=== PATIENT | female | born 2000 | race Caucasian/White ===

== ENCOUNTER 2021-12-01 14:15 | Emergency (ER) | payer BC ==
[2021-12-01] MEDS ORDERED: PROMETHAZINE 25 MG/1 ML VIAL IM STA (16:07)
--- NOTE | 2021-12-01 16:11 | ED Physician Documentation ---
History of Present Illness - Stated complaint Stated Complaint: MED WITHDRAWL/FEVER - Chief complaint Chief Complaint: General - History obtained from History obtained from: Patient - History of Present Illness Timing: How many days ago (3) Pain level max: 0 Pain level now: 0 - Additonal information Additional information: Patient is a 21-year-old female with a history of depression and possible bipolar disorder. She states that she did not like the way her psychiatric medications were making her feel and so she stopped all of her psychiatric medications 3 to 4 days ago. She states since that time she has had increasing nausea. She has Zofran at home but did not take it. She does not want to be restarted on her medications. No seizures. No chest pain. No shortness of breath. Denies any possibility of . Nothing makes it better or worse. She is here requesting something for nausea. She has currently decided to treat her depression with antioxidants and diet Review of Systems Constitutional: denies: Fever, Chills Cardiac: denies: Chest pain / pressure Respiratory: denies: Cough GI: denies: Abdominal Pain, Vomiting, Diarrhea : denies: Dysuria, Frequency, Hesitancy, Now EGA Skin: denies: Rash Musculoskeletal: denies: Neck pain, Back pain Neurologic: denies: Headache PD PAST MEDICAL HISTORY - Past Medical History Past Medical History: Yes Psych: Depression - Past Surgical History Past Surgical History: No - Present Medications Home Medications: Ambulatory Orders Medication Instructions Recorded Confirmed Ondansetron Odt [Zofran] 4 mg TL Q6H PRN #10 tablet 12/01/21 Promethazine [Phenergan] 25 mg PO Q6H PRN #10 tab 12/01/21 - Allergies Allergies/Adverse Reactions: Allergies Allergy/AdvReac Type Severity Reaction Status Date / Time No Known Drug Allergies Allergy Verified 12/01/21 14:34 - Living Situation Living Situation: reports: With family Living Arrangement: reports: At home - Social History Does the pt drink ETOH?: No Does the pt have substance abuse?: No - Family History Family history: reports: Non contributory PD ED PE NORMAL - Vitals Vital signs reviewed: Yes - General General: Alert and oriented X 3, No acute distress, Well developed/nourished - HEENT HEENT: Moist mucous membranes - Neck Neck: Supple, no meningeal sign - Cardiac Cardiac: RRR - Respiratory Respiratory: No respiratory distress, Clear bilaterally - Abdomen Abdomen: Soft, Non tender, Non distended - Derm Derm: Warm and dry - Extremities Extremities: No edema - Neuro Neuro: Alert and oriented X 3 - Psych Psych: Normal mood, Normal affect Results - Vitals Vitals: Vital Signs - 24 hr 12/01/21 12/01/21 14:26 16:36 Temperature 36.6 C 36.7 C Heart Rate 77 75 Respiratory 18 16 Rate Blood Pressure 136/94 H 130/89 H O2 Saturation 100 100 Oxygen O2 Source Room air PD MEDICAL DECISION MAKING - ED course Complexity details: considered differential, d/w patient ED course: 21-year-old female has been withdrawing from her antipsychotic medications and antidepressants. She does not want to be restarted on these. We will prescribe antiemetics for home. Patient is well-appearing, nontoxic. Afebrile. Declines any further work-up. Patient counseled regarding signs and symptoms for which I believe and urgent re-evaluation would be necessary. Patient with good understanding of and agreement to plan and is comfortable going home at this time This document was made in part using voice recognition software. While efforts are made to proofread this document, sound alike and grammatical errors may occur. Departure - Departure Disposition: 01 Home, Self Care Clinical Impression: Nausea, Withdrawal complaint Condition: Good Instructions: ED Nausea Vomiting Follow-Up: JULIO JOHNSON PA [Primary Care Provider] - Within 1 week Prescriptions: Promethazine [Phenergan] 25 mg PO Q6H PRN #10 tab PRN Reason: Nausea / Vomiting Ondansetron Odt [Zofran] 4 mg TL Q6H PRN #10 tablet PRN Reason: Nausea / Vomiting Comments: Please follow-up with your doctor for further care and to discuss any further medication changes. Please return if you worsen. Your prescriptions were sent to [facility]. In the future, when you decide to stop your medication, please check with your doctor first as they will help you with a taper. Discharge Date/Time: 12/01/21 16:41
[2021-12-01 16:37] VITALS: BP 130/89
== END 2021-12-01 16:41 | disposition home or self-care (01) ==
LOC: ED 14:15
DX: F19.239 Other psychoactive substance dependence with withdrawal, unspecified (principal)
CPT/HCPCS: 96372; 99282; 99283

== ENCOUNTER 2021-12-13 09:10 | Emergency (ER) | payer BC ==
[2021-12-13] MEDS ORDERED: OLANZapine ODT 5 MG TABLET TL ONE (09:26)
[2021-12-13] MEDS ORDERED: KETAMINE 500 MG/10 ML VIAL IM STA ×2 (09:37→22:43)
[2021-12-13] MEDS ORDERED: OLANZapine 10 MG VIAL IM STA (10:05)
--- NOTE | 2021-12-13 10:07 | ED Physician Documentation ---
PD HPI MHE - Stated complaint Stated Complaint: MHE - Chief complaint Chief Complaint: MHE - History obtained from History obtained from: Patient, Police - History of Present Illness Primary symptom: Aggressive behavior, Off meds Timing - onset: Today Contributing factors: Off meds Similar symptoms before: Diagnosis (bipolar) Recently seen: Not recently seen - Additional information Additional information: 21-year-old female with a history of bipolar affective disorder has discontinued her medications and she has developed some aggressive behavior. This morning she was found wandering [place] when she tried to get into [place] [employer] [place] through the gate she became hypersexual taking off her close and resisting. Police were able to bring the patient to the emergency department handcuffed and she has been uncooperative here in the emergency department with physical evaluation. Review of Systems Unable to obtain: Uncooperative PD PAST MEDICAL HISTORY - Past Medical History Psych: Depression - Past Surgical History Past Surgical History: No - Present Medications Home Medications: Ambulatory Orders Medication Instructions Recorded Confirmed Ondansetron Odt [Zofran] 4 mg TL Q6H PRN #10 tablet 12/01/21 Promethazine [Phenergan] 25 mg PO Q6H PRN #10 tab 12/01/21 - Allergies Allergies/Adverse Reactions: Allergies Allergy/AdvReac Type Severity Reaction Status Date / Time No Known Drug Allergies Allergy Verified 12/13/21 09:24 - Social History Does the pt drink ETOH?: No Does the pt have substance abuse?: No PD ED PE NORMAL - Vitals Vital signs reviewed: Yes (hypertensive ) - General General: Alert and oriented X 3, Well developed/nourished, Other (The patient is sitting upright on her knees no the gurney. Her legs are covered with writing from multiple differently colored pens. She is talking in a sing song rhyme) - HEENT HEENT: Atraumatic, PERRL - Neck Neck: Supple, no meningeal sign, No bony TTP - Cardiac Cardiac: RRR, No murmur - Respiratory Respiratory: No respiratory distress, Clear bilaterally - Abdomen Abdomen: Soft, Non tender - Back Back: No CVA TTP, No spinal TTP - Derm Derm: Normal color, Warm and dry, No rash - Extremities Extremities: No deformity, No edema - Neuro Neuro: Alert and oriented X 3, bench grinder 2-12 intact, No motor deficit, No sensory deficit, Other (speech is pressured) Eye Opening: Spontaneous Motor: Obeys Commands Verbal: Oriented GCS Score: 15 - Psych Psych: Other (mood is euphoric affect is bright. ) Results - Vitals Vitals: Vital Signs - 24 hr 12/13/21 12/13/21 12/13/21 09:20 09:37 09:52 Temperature 36.3 C L Heart Rate 95 84 92 Respiratory 16 16 16 Rate Blood Pressure 143/89 H 146/96 H 159/95 H O2 Saturation 98 100 100 12/13/21 12/13/21 12/13/21 10:20 10:52 11:22 Temperature Heart Rate 86 72 75 Respiratory 18 12 16 Rate Blood Pressure 147/95 H 158/98 H 124/74 O2 Saturation 100 100 100 12/13/21 12/13/21 12/13/21 11:50 16:00 19:24 Temperature 36.6 C Heart Rate 80 85 Respiratory 12 16 17 Rate Blood Pressure 107/68 112/68 O2 Saturation 100 100 Oxygen O2 Source Room air - EKG (time done) 1207 Rate: Rate (enter#) (76) Rhythm: NSR Ischemia: Normal ST segments Compare to prior EKG: Old EKG unavailable Computer interpretation: Agree with computer - Labs Labs: Laboratory Tests 12/13/21 12/13/21 12/13/21 10:01 10:01 10:08 WBC 7.7 RBC 4.44 Hgb 11.9 L Hct 36.9 L MCV 83.1 MCH 26.8 L MCHC 32.2 RDW 13.5 Plt Count 338 MPV 11.3 H Neut # (Auto) 5.7 Lymph # (Auto) 1.4 L Barton # (Auto) 0.6 Eos # (Auto) 0.0 Baso # (Auto) 0.1 Absolute Nucleated RBC 0.00 Nucleated RBC % 0.0 Sodium Potassium Chloride Carbon Dioxide Anion Gap BUN Creatinine Estimated GFR (MDRD) Glucose Calcium Total Bilirubin AST ALT Alkaline Phosphatase Total Protein Albumin Globulin Albumin/Globulin Ratio Lipase TSH Urine Color YELLOW Urine Clarity SL. CLOUDY Urine pH 5.5 Ur Specific [place] >=1.030 H Urine Protein NEGATIVE Urine Glucose (UA) NEGATIVE Urine Ketones NEGATIVE Urine Occult Blood TRACE-INTA Urine Nitrite POSITIVE H Urine Bilirubin NEGATIVE Urine Urobilinogen 0.2 (NORMAL) Ur Leukocyte Esterase SMALL H Urine RBC 0-5 Urine WBC 11-25 H Ur Squamous Epith Cells FEW Squamous Urine Bacteria Moderate H Ur Microscopic Review INDICATED Urine Culture Comments INDICATED Urine HCG, Qual NEGATIVE Nasal Adenovirus (PCR) Nasal B. parapertussis DNA (PCR) Nasal Coronavir 229E PCR Nasal Coronavir HKU1 PCR Nasal Coronavir NL63 PCR Nasal Coronavir OC43 PCR Nasal Enterovir/Rhinovir PCR Nasal Influenza B PCR Nasal Influenza A PCR Nasal Parainfluen 1 PCR Nasal Parainfluen 2 PCR Nasal Parainfluen 3 PCR Nasal Parainfluen 4 PCR Nasal RSV (PCR) Nasal B.pertussis DNA PCR Nasal C.pneumoniae (PCR) Rudolph Human Metapneumo PCR Nasal M.pneumoniae (PCR) Nasal SARS-CoV-2 (PCR) Salicylates Urine Opiates Screen NEGATIVE Ur Oxycodone Screen NEGATIVE Urine Methadone Screen NEGATIVE Ur Propoxyphene Screen NEGATIVE Acetaminophen Ur Barbiturates Screen NEGATIVE Ur Tricyclics Screen NEGATIVE Ur Phencyclidine Scrn NEGATIVE Ur Amphetamine Screen NEGATIVE U Methamphetamines Scrn NEGATIVE U Benzodiazepines Scrn NEGATIVE Urine Cocaine Screen NEGATIVE U Cannabinoids Screen NEGATIVE Ethyl Alcohol 12/13/21 12/13/21 12/13/21 10:08 10:08 11:16 WBC RBC Hgb Hct MCV MCH MCHC RDW Plt Count MPV Neut # (Auto) Lymph # (Auto) Barton # (Auto) Eos # (Auto) Baso # (Auto) Absolute Nucleated RBC Nucleated RBC % Sodium 137 Potassium 3.5 Chloride 104 Carbon Dioxide 23 Anion Gap 10.0 BUN 15 Creatinine 0.8 Estimated GFR (MDRD) 89 Glucose 113 H Calcium 8.6 Total Bilirubin 1.0 AST 23 ALT 35 Alkaline Phosphatase 68 Total Protein 7.4 Albumin 3.9 Globulin 3.5 Albumin/Globulin Ratio 1.1 Lipase 29 TSH 2.59 Urine Color Urine Clarity Urine pH Ur Specific [place] Urine Protein Urine Glucose (UA) Urine Ketones Urine Occult Blood Urine Nitrite Urine Bilirubin Urine Urobilinogen Ur Leukocyte Esterase Urine RBC Urine WBC Ur Squamous Epith Cells Urine Bacteria Ur Microscopic Review Urine Culture Comments Urine HCG, Qual Nasal Adenovirus (PCR) NOT DETECTED Nasal B. parapertussis DNA (PCR) NOT DETECTED Nasal Coronavir 229E PCR NOT DETECTED Nasal Coronavir HKU1 PCR NOT DETECTED Nasal Coronavir NL63 PCR NOT DETECTED Nasal Coronavir OC43 PCR NOT DETECTED Nasal Enterovir/Rhinovir PCR NOT DETECTED Nasal Influenza B PCR NOT DETECTED Nasal Influenza A PCR NOT DETECTED Nasal Parainfluen 1 PCR NOT DETECTED Nasal Parainfluen 2 PCR NOT DETECTED Nasal Parainfluen 3 PCR NOT DETECTED Nasal Parainfluen 4 PCR NOT DETECTED Nasal RSV (PCR) NOT DETECTED Nasal B.pertussis DNA PCR NOT DETECTED Nasal C.pneumoniae (PCR) NOT DETECTED Rudolph Human Metapneumo PCR NOT DETECTED Nasal M.pneumoniae (PCR) NOT DETECTED Nasal SARS-CoV-2 (PCR) NOT DETECTED Salicylates < 6.0 Urine Opiates Screen Ur Oxycodone Screen Urine Methadone Screen Ur Propoxyphene Screen Acetaminophen < 10 L Ur Barbiturates Screen Ur Tricyclics Screen Ur Phencyclidine Scrn Ur Amphetamine Screen U Methamphetamines Scrn U Benzodiazepines Scrn Urine Cocaine Screen U Cannabinoids Screen Ethyl Alcohol < 5.0 PD MEDICAL DECISION MAKING - ED course Complexity details: reviewed results, re-evaluated patient, considered differential, d/w patient ED course: 21-year-old female with history of bipolar disorder is off of her medications and this morning she presents in a manic state. She has pressured speech flight of ideas and hypersexuality. She is initially uncooperative with examination and when the nurse attempted to give her medication she aggressively attempts to strike the nurse with the hands she has behind her back in handcuffs. She is periodically verbally offensive. She is uncooperative and requires sedation with ketamine to obtain specimens and complete the examination. She is medically cleared for psychiatric evaluation. She is also administered Zyprexa 10 mg IM and she sleeps for most of the day with marked improvement on awakening. She is more cooperative. At shift change the patient is being pierre luated by the DCR and care is turned over to Dr. Portillo. Departure - Departure Clinical Impression: Bipolar affective disorder Qualifiers: Active/Remission status: currently active Current bipolar episode type: manic Current episode severity: moderate Qualified Code(s): F31.12 - Bipolar disorder, current episode manic without psychotic features, moderate
[2021-12-13 10:13] LABS: BASOPHILS # (AUTO) 0.1 10^3/uL (0.0-0.1); BASOPHILS % (AUTO) 0.6 %; EOSINOPHILS % (AUTO) 0.5 %; HCT - HEMATOCRIT 36.9 % (37.0-47.0); HGB - HEMOGLOBIN 11.9 g/dL (12.0-16.0); LYMPHOCYTES # (AUTO) 1.4 10^3/uL (1.5-3.5); LYMPHOCYTES % (AUTO) 17.7 %; MEAN CORPUSCULAR HEMOGLOBIN 26.8 pg (27.0-31.0); MEAN CORPUSCULAR HGB CONC 32.2 g/dL (32.0-36.0); MEAN CORPUSCULAR VOLUME 83.1 fL (81.0-99.0); MEAN PLATELET VOLUME 11.3 fL (7.9-10.8); MONOCYTES # (AUTO) 0.6 10^3/uL (0.0-1.0); MONOCYTES % (AUTO) 7.4 %; NEUTROPHILS # (AUTO) 5.7 10^3/uL (1.5-6.6); NEUTROPHILS % (AUTO) 73.5 %; PLT - PLATELET COUNT 338 10^3/uL (130-450); RED BLOOD COUNT 4.44 10^6/uL (4.20-5.40); RED CELL DISTRIBUTION WIDTH 13.5 % (12.0-15.0); WHITE BLOOD COUNT 7.7 x10^3/uL (4.8-10.8)
[2021-12-13 10:14] LABS: MUDS CUTOFF CONCENTRATIONS CUTOFF CONC BELOW:
[2021-12-13 10:23] LABS: BILIRUBIN,URINE NEGATIVE (NEGATIVE); GLUCOSE, URINE (UA) NEGATIVE (NEGATIVE); KETONES,URINE (UA) NEGATIVE (NEGATIVE); LEUKOCYTE ESTERASE, URINE SMALL (NEGATIVE); NITRITE,URINE POSITIVE (NEGATIVE); OCCULT BLOOD,URINE TRACE-INTA (NEGATIVE); PH,URINE 5.5 PH (5.0-7.5); PROTEIN,URINE NEGATIVE (NEGATIVE); UROBILINOGEN,URINE 0.2 (NORMAL) E.U./dL (NORMAL)
[2021-12-13 10:25] LABS: CLARITY,URINE SL. CLOUDY (CLEAR)
[2021-12-13 10:26] LABS: HCG UR QUAL NEGATIVE
[2021-12-13 10:34] LABS: BACTERIA,URINE Moderate /HPF (None Seen); RBC,URINE 0-5 /HPF (0-5); SQUAMOUS EPITHELIAL CELL,UR FEW Squamous (<= Few)
[2021-12-13 10:35] LABS: AMPHETAMINE SCREEN,URINE NEGATIVE (NEGATIVE); BARBITURATE SCREEN,UR NEGATIVE (NEGATIVE); BENZODIAZEPINES SCREEN, URINE NEGATIVE (NEGATIVE); COCAINE SCREEN URINE NEGATIVE (NEGATIVE); METHADONE SCREEN, URINE NEGATIVE (NEGATIVE); METHAMPHETAMINES SCREEN, URINE NEGATIVE (NEGATIVE); OPIATE SCREEN, URINE NEGATIVE (NEGATIVE); OXYCODONE SCREEN, URINE NEGATIVE (NEGATIVE); PROPOXYPHENE SCREEN, URINE NEGATIVE (NEGATIVE); THC CANNABINOID SCREEN, URINE NEGATIVE (NEGATIVE); TRICYCLIC ANTIDEPRESSANT,URINE NEGATIVE (NEGATIVE)
[2021-12-13 11:21] LABS: ACETAMINOPHEN < 10 ug/mL (10-30); ALBUMIN 3.9 g/dL (3.2-5.5); ALBUMIN/GLOBULIN RATIO 1.1 (1.0-2.2); ALKALINE PHOSPHATASE 68 IU/L (42-121); ALT ALANINE AMINOTRANSFERASE 35 IU/L (10-60); AST ASPARTATE AMINOTRANSFERASE 23 IU/L (10-42); BUN - BLOOD UREA NITROGEN 15 mg/dL (6-20); CALCIUM 8.6 mg/dL (8.5-10.3); CARBON DIOXIDE - CO2 23 mmol/L (21-32); CHLORIDE 104 mmol/L (101-111); CREATININE 0.8 mg/dL (0.4-1.0); ETOH - ETHANOL < 5.0 mg/dL; GFR - MDRD 89 (>89); GLUCOSE 113 mg/dL (70-100); LIPASE 29 U/L (22-51); POTASSIUM 3.5 mmol/L (3.5-5.0); SALICYLATE < 6.0 mg/dL; SODIUM 137 mmol/L (135-145); TOTAL PROTEIN 7.4 g/dL (6.7-8.2)
[2021-12-13 12:48] LABS: CORONAVIRUS 229E-RESP PCR NOT DETECTED; CORONAVIRUS HKU1-RESP PCR NOT DETECTED; CORONAVIRUS NL63-RESP PCR NOT DETECTED; CORONAVIRUS OC43-RESP PCR NOT DETECTED; HUMAN METAPNEUMOVIRUS NOT DETECTED; INFLUENZA A- RESP PCR PANEL NOT DETECTED; INFLUENZA B - RESP PCR PANEL NOT DETECTED; PARAINFLUENZA VIRUS 1 NOT DETECTED; PARAINFLUENZA VIRUS 2 NOT DETECTED; PARAINFLUENZA VIRUS 3 NOT DETECTED; RHINOVIRUS/ENTEROVIRUS NOT DETECTED; SARS-CoV-2 -RESP PCR PANEL NOT DETECTED
[2021-12-13 12:49] LABS: B. PARAPERTUSSIS- RESP PCR PAN NOT DETECTED; B. PERTUSSIS- RESP PCR PANEL NOT DETECTED; C. PNEUMONIAE- RESP PCR PANEL NOT DETECTED; M. PNEUMONIAE- RESP PCR PANEL NOT DETECTED; PARAINFLUENZA VIRUS 4 NOT DETECTED; RSV- RESP PCR PANEL NOT DETECTED
[2021-12-13] MEDS: SULFAMETH/TRIMETH DS 800/160 MG TABLET PO STA ×2 (19:39→20:00)
--- NOTE | 2021-12-13 20:15 | ED Physician Documentation ---
ED Addendum - Addendum Addendum: 12/13/21 20:13 Patient endorsed to me by Dr. Arana pending further care. d/w SAMIR Morales who states patient is manic, depressed, certainly needs inpatient care. refusing all psych medications. Do not allow her to leave. Andrew will initiate detainment and see her in the ED. Plan to give IM meds as needed. 12/14/21 01:40 Patient accepted in transfer to [facility]. Impression 1. psychosis 2. bipolar affective disorder Disposition transfer inpatient psych Condition stable
[2021-12-13] MEDS ORDERED: cefTRIAXone 1 GM VIAL IM STA (22:46)
--- NOTE | 2021-12-13 22:46 | ED Physician Documentation ---
Face to Face for Restraints - Immediate Situation Face to Face Evaluation Date: 12/13/21 Face to Face Evaluation Time: 22:45 Restraint Situation: Physical Hold, Chemical Patient's Reactions to the Intervention: Physically safe, Resting quietly - Behavioral Condition Attitude: Guarded Behavior: Uncooperative, Belligerent, Agitated Orientation: Non-responsive Mood: Labile, Angry - Evaluation Review of Systems: see DEMETRIA SOTO Pertinent History/Illicit Drugs/Medications/Results: see DEMETRIA Prince HPI/BRITTANY - Plan Need to Continue or Terminate Violent or Chemical Restraint: Need to provide chemical restraints given acute agitation.
[2021-12-13] MEDS ORDERED: WATER FOR INJECTION,STERILE 10 ML MC ONE (22:59)
--- NOTE | 2021-12-13 23:54 | ED Physician Documentation ---
Face to Face for Restraints - Immediate Situation Face to Face Evaluation Date: 12/13/21 Face to Face Evaluation Time: 22:45 Restraint Situation: Locking Patient's Reactions to the Intervention: Physically safe, Compliant, Resting quietly - Behavioral Condition Attitude: Guarded Behavior: Uncooperative, Belligerent Orientation: Non-responsive Mood: Labile, Angry - Evaluation Review of Systems: see DEMETRIA SOTO Pertinent History/Illicit Drugs/Medications/Results: see DEMETRIA Prince HPI/ROS - Plan Need to Continue or Terminate Violent or Chemical Restraint: Need for four point restraints and chemical sedation given agitated delirium, physically agressive and wanting to elope.
[2021-12-14 00:55] VITALS: BP 108/74
== END 2021-12-14 02:42 ==
LOC: EDUNIT# → ED 09:10
DX: F31.12 Bipolar disorder, current episode manic without psychotic features, moderate (principal); F29 Unspecified psychosis not due to a substance or known physiological condition; Z78.1 Physical restraint status
CPT/HCPCS: 0202U; 36415; 80053; 80306; 80307; 80320; 80329; 81001; 81025; 83690; 84443; 85025; 87086; 87181; 93005; 96372; 99285; A9270; 81003

== ENCOUNTER 2021-12-14 02:37 | Outpatient (CLI) | payer BC | END 2021-12-14 02:38 | LOC: EMS 02:37 | PROVIDERS: ATTEND Emergency Medicine | DX: F29 Unspecified psychosis not due to a substance or known physiological condition (principal); Z78.1 Physical restraint status | CPT/HCPCS: A0425; A0428 ==